=== PATIENT | male | born 1955 | race Caucasian/White ===

== ENCOUNTER → 2017-02-09 | Outpatient (CLI) | payer BC ==
--- NOTE | 2017-02-09 16:27 | MR ---
EXAMINATION TYPE: MR lumbar spine wo con DATE OF EXAM: 02/09/2017 3:37 PM COMPARISON: NONE HISTORY: LUMBAGO WITH SCIATICA LT SIDE TECHNIQUE: T1 and T2 axial and sagittal images of the lumbar spine are submitted. FINDINGS: There is no abnormal signal seen within the visualized spinal cord or paraspinal soft tissu es. At L1-2 there is no disc herniation or canal stenosis. Hypertrophic change of the facets and ligament um flavum. No foraminal encroachment. At L2-3 there is moderate degenerative disc disease. Hypertrophic change of the facets and ligamentum flavum noted. Circumferential disc bulging results in moderate bilateral foraminal encroachment grea ter on the right. At L3-4 there is moderate degenerative disc disease with marked facet arthropathy and there is ligame ntum flavum hypertrophy.. Diffuse disc bulging results in mild compression of thecal sac and mild can al stenosis. There is mild to moderate left foraminal encroachment and moderate to severe right-sided foraminal encroachment. Mass effect upon the nerve root on the right is suspected. At L4-5 there is grade 1 anterolisthesis with severe facet arthropathy. Bilateral spondylolysis not e xcluded. Severe degenerative disc disease with vacuum disc phenomenon. Broad-based central disc bulgi ng seen. There is moderate bilateral foraminal encroachment and moderate canal stenosis. At L5-S1 there is moderate to severe degenerative disc disease with facet arthropathy. There is circu mferential disc bulging with mild right foraminal encroachment and moderate severe left foraminal enc roachment. Discogenic marrow changes and severe degenerative disc disease A large simple appearing right renal cyst is noted measuring at least 7 cm. Additional upper pole sim ple right renal cyst also suspected. IMPRESSION: 1. Multilevel degenerative disc disease with grade 1 anterolisthesis L4 and L5 resulting in bilateral foraminal encroachment and moderate canal stenosis. 2. Multilevel disc bulging, foraminal encroachment with mass effect upon the right nerve root at L3-L 4 cyst identified. Severe foraminal encroachment left at L5-S1. 3. Large renal cysts.
== END | disposition home or self-care (01) ==
LOC: RADMRIMAIN 14:50
PROVIDERS: ATTEND Family Medicine
DX: M48.00 Spinal stenosis, site unspecified (principal); M99.73 Connective tissue and disc stenosis of intervertebral foramina of lumbar region; M99.74 Connective tissue and disc stenosis of intervertebral foramina of sacral region; M51.26 Other intervertebral disc displacement, lumbar region; M51.36 Other intervertebral disc degeneration, lumbar region; M43.16 Spondylolisthesis, lumbar region; G89.29 Other chronic pain
CPT/HCPCS: 72148

== ENCOUNTER → 2017-03-11 | Outpatient (CLI) | payer BC ==
--- NOTE | 2017-03-11 16:21 | US ---
EXAMINATION TYPE: US kidneys/renal and bladder DATE OF EXAM: 03/11/2017 COMPARISON: MRI CLINICAL HISTORY: N28.1 Kidney cyst. Kidney cyst seen on recent MRI EXAM MEASUREMENTS: Right Kidney: 11.3 x 7.4 x 5.7 cm Left Kidney: 11.6 x 6.3 x 5.5 cm Right Kidney: 7.7 x 7.1 x 6.9cm cystic area inferior pole, 3.5 x 2.9 x 2.2cm cystic area superior taras e Left Kidney: no hydronephrosis or renal masses seen at this time Bladder: wnl Bilateral Jets seen: yes identified. The urinary bladder is anechoic. Bilateral ureteral jets are seen. Both cysts within the right kidney appears simply cystic. IMPRESSION: SIMPLE APPEARING RIGHT RENAL CYSTS.
== END | disposition home or self-care (01) ==
LOC: RADUSMAIN 15:41
PROVIDERS: ATTEND Family Medicine
DX: N28.1 Cyst of kidney, acquired (principal)
CPT/HCPCS: 76770

== ENCOUNTER → 2018-12-16 | Outpatient (CLI) | payer BC ==
--- NOTE | 2018-12-16 08:17 | MR ---
EXAMINATION TYPE: MR knee LT wo con DATE OF EXAM: 12/16/2018 COMPARISON: None HISTORY: Pain TECHNIQUE: Multiplanar, multisequence imaging of the left knee is performed without IV contrast. FINDINGS: MEDIAL MENISCUS: There is PseudoExtrusion of the posterior horn of the medial meniscus. There is grad e 3 abnormal signal involving the posterior horn compatible with meniscal tear. LATERAL MENISCUS: Intrasubstance signal seen involving both the anterior and posterior horn most typi mariam of mucoid degeneration. Subtle linear tear involving the posterior horn is not excluded. CRUCIATE LIGAMENTS: The anterior and posterior cruciate ligaments are intact and unremarkable. COLLATERAL LIGAMENTS: There is increased signal surrounding the MCL. There is no evidence of through thickness tear. Findings compatible with grade 1 MCL strain EXTENSOR MECHANISM: Visualized quadriceps and patellar tendons are intact. EFFUSION: Small amount of fluid in the suprapatellar bursa. POPLITEAL CYST: No popliteal/traore cyst. TRICOMPARTMENT SPACES: Narrowing the medial compartment of the knee joint. There is fibrillation and grade II chondromalacia of the articular femoral cartilage. Grade III chondromalacia involving the la teral patellar facet. Fibrillation involving the apex patellar cartilage. BONE MARROW SIGNAL: No focal abnormal marrow signal is appreciated. IMPRESSION: 1. 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 2. Posterior horn medial meniscal tear. 3. Grade 1 MCL strain. 4. Findings involving the lateral meniscus most typical of mucoid degeneration. Subtle posterior horn lateral meniscal tear not excluded.
== END | disposition home or self-care (01) ==
LOC: RADMRIMAIN 07:30
PROVIDERS: ATTEND Family Medicine
DX: S83.242A Other tear of medial meniscus, current injury, left knee, initial encounter (principal); S83.412A Sprain of medial collateral ligament of left knee, initial encounter; M17.12 Unilateral primary osteoarthritis, left knee; M94.262 Chondromalacia, left knee

== ENCOUNTER → 2020-09-13 | Outpatient (CLI) | payer BC ==
--- NOTE | 2020-09-13 14:42 | XR ---
Thoracic spine HISTORY: Upper back pain Frontal lateral views of the thoracic spine submitted on 5 images There is a spinal curvature convex right centered at the mid to lower thoracic spine. Multilevel spon dylosis is present. Thoracic vertebral bodies show preserved height. Bone mineralization is reduced. Flowing anterior osteophytes with relative preservation of disc space could be indicative of diffuse idiopathic skeletal hyperostosis. Degenerative disc changes are noted in the cervical spine. IMPRESSION: Degenerative disc disease, DISH.
--- NOTE | 2020-09-13 15:12 | XR ---
Cervical spine HISTORY: Neck pain 5 views of the cervical spine There is multilevel facet arthropathy. Anterolisthesis grade 1 C4-5. There is loss of disc height gre atest at C5-6, C6-7 with associated spondylosis. Prevertebral soft tissues are normal. Cervical verte bral bodies show preserved height. Multilevel foraminal encroachment including T4-5, C5-6, C6-7 bilat erally. Odontoid view is limited. IMPRESSION: Degenerative disc disease, foraminal encroachment, facet arthropathy. Spondylolisthesis.
--- NOTE | 2020-09-13 15:13 | XR ---
Left foot HISTORY: Left foot pain, edema 3 views the left foot Bone mineralization, joint spaces and alignment are maintained. No fracture or dislocation. There is a plantar calcaneal spur, enthesophyte at the insertion of the Achilles tendon IMPRESSION: Plantar spur.
== END | disposition home or self-care (01) ==
LOC: RADXRMAIN 09:57
PROVIDERS: ATTEND Family Medicine
DX: M43.12 Spondylolisthesis, cervical region (principal); M50.30 Other cervical disc degeneration, unspecified cervical region; M51.34 Other intervertebral disc degeneration, thoracic region; M47.812 Spondylosis without myelopathy or radiculopathy, cervical region; M48.14 Ankylosing hyperostosis [Forestier], thoracic region; M77.32 Calcaneal spur, left foot
CPT/HCPCS: 72050; 72070